=== PATIENT | male | born 1995 | race Caucasian/White ===

== ENCOUNTER 2017-02-03 09:44 | Day surgery (SDC) | payer BC ==
--- NOTE | 2017-02-03 07:52 | HP ---
DATE OF SURGERY: 02/03/2017 HISTORY OF PRESENT ILLNESS: The patient is a 21 year-old who for the past year has had a bulge, occasional aches and pains. I thought he had some incarcerated preperitoneal fat. PAST MEDICAL HISTORY: He denies any chronic illnesses. MEDICATIONS: None. ALLERGIES: NKDA. PAST SURGICAL HISTORY: None. FAMILY HISTORY: Negative. SOCIAL HISTORY: No smoking. He does drink alcohol occasionally denies abuse. REVIEW OF SYSTEMS: Twelve systems reviewed per admission assessment. No chest pain or palpitations other systems negative or noncontributory as above and per preadmission questionnaire. PHYSICAL EXAMINATION: GENERAL: No acute distress. HEENT: Sclerae nonicteric. NECK: No JVD. CHEST: Equal excursion, nonlabored breathing. CVS: Regular rate and rhythm. ABDOMEN: Soft. Incarcerated hernia mid abdomen likely with some preperitoneal fat or omentum. No peritoneal signs. EXTREMITIES: No significant edema. NEURO: Alert, oriented, moving extremities symmetrically. No gross motor deficits noted. IMPRESSION: Incarcerated ventral hernia. I felt he would benefit from repair likely with mesh. Risks and benefits explained in detail including but not limited to bleeding or infection, small risk of bowel injury or perforation, adhesion or scar formation, risk of hematoma or seroma formation, risk of aches, pains, burning or numbness possibly residential or chronic in nature. Risk of mesh fracture or failure possibly creating an issue with the bowel possibly requiring other procedures, ongoing morbidity. Overall risk of hernia recurrence. Risk if the mesh became infected likely would need to be removed, risk of ingrown hair or suture reaction usually heals on its own. Risk of hematoma, seroma formation, swelling, or firmness of the incision. He understands and agrees to the planned procedure and will proceed with repair of incarcerated ventral umbilical area hernia with mesh as an outpatient.
[~2017-02-03 09:44] MED LIST: BRIDION 200MG/2ML IV ONE; DIPRIVAN 200 MG/20 ML IV ONE; Decadron 4 MG INJ IV ONE; SUBLIMAZE 100 MCG/2 ML IV ONE; TORAdol 30 mg Injection IV ONE; Zemuron 100 MG/10 ML IV ONE; Zofran 4 MG/2 ML VIAL IV ONE
[2017-02-03] MEDS ORDERED: CEFAZOLIN 2 GM-D5W BAG** 50 ML IV ONE (09:51)
[2017-02-03] MEDS ORDERED: Lactated Ringers 1,000 ML IV SCH (10:00)
[2017-02-03] MEDS ORDERED: Versed 2 MG/2 ML Injection IV ONE (10:24)
[2017-02-03] MEDS ORDERED: Lactated Ringers 1,000 ML IV ONE (10:59)
[2017-02-03] MEDS ORDERED: Sensorcaine 0.25% 10 ML ONE (10:59)
[2017-02-03] MEDS ORDERED: BACIGUENT 30 GM ONE (11:36)
[2017-02-03] MEDS ORDERED: DILAUDID 2 MG INJECTION ONE (12:04)
[2017-02-03] MEDS ORDERED: NORCO 5/325 MG PO PRN ×2 (13:02→13:13)
[2017-02-03] MEDS ORDERED: NORCO 5/325 MG ONE (13:06)
[2017-02-03 13:26] VITALS: O2SAT 98
[2017-02-03 14:08] VITALS: BP 128/70; PULSE 57
--- NOTE | 2017-02-04 09:49 | OP ---
SURGERY DATE/TIME: 02/03/2017 1106 PREOPERATIVE DIAGNOSIS: Incarcerated umbilical area hernia. POSTOPERATIVE DIAGNOSIS: Incarcerated umbilical hernia. PROCEDURE: Repair of incarcerated umbilical hernia with mesh. MEDICAL OFFICE PROFESSIONAL INSTRUCTOR: Jett Sanchez, Medical Student III. SURGEON: Dr. Leo Madrigal. ANESTHESIA: General. ESTIMATED BLOOD LOSS: Minimal. INDICATIONS: As noted above. Risks and benefits explained in detail and not limited to and consent was obtained. The patient was having some mid abdominal aches and pains. It was felt he had incarcerated umbilical area hernia. I felt he would benefit from repair. Risks and benefits explained in detail but not limited to, including the possibility it may not improve his aches and pains as well as overall risk of hernia recurrence as well as risk as listed per the surgical consult note that was discussed in detail in the office but not limited. Consent was obtained. DESCRIPTION OF PROCEDURE AND FINDINGS: The site was confirmed with the patient in the holding area. The patient is taken to the operating room. General anesthesia was induced. The abdomen is prepped and draped in usual sterile fashion. After official time out and no disagreement with planned procedure a transverse incision made. Dissection carried down through the level of the fascia. He had a fair amount of subcutaneous adipose tissue but slowly and carefully umbilical tissue was freed from the underlying fascia revealing the incarcerated preperitoneal fat as well as the hernia. There did not appear to be any other obvious hernias around this area at this time. It was felt he would benefit from repair with a small piece of mesh. A 1x4 piece of mesh is cut to appropriate dimensions. Once the incarcerated fat had been reduced back down in the abdomen the fascia clear circumferentially. The mesh is placed carefully stay sutures with four quadrants were carefully placed. The mesh was able to be tacked in the retrofascial position in a tension-free manner with 0 Prolene in four quadrants. Good hemostasis noted. The patient's attenuated tissue was then closed over the top of the mesh with 0 PDS isolating the mesh from the rest of the subcu. The wound was irrigated out. Umbilical tissue had been tacked back down to the level of fascia with interrupted 3-0 Vicryl, subcu closed with 3-0 Vicryl, skin closed with 4-0 Vicryl. Steri-Strips and sterile dressing applied as well as a light little pressure dressing in the naval area itself. The patient tolerated the procedure well. There were no immediate complications. Findings discussed with the family out in the waiting area. He was transferred to the recovery room in stable condition.
== END 2017-02-03 13:50 | disposition home or self-care (01) ==
LOC: SDC 09:44
PROVIDERS: ATTEND Surgery
PROC: 0WUF0JZ Supplement Abdominal Wall with Synthetic Substitute, Open Approach (ICD-10-PCS; principal; 2017-02-03)
DX: K42.0 Umbilical hernia with obstruction, without gangrene (principal)
CPT/HCPCS: 00840; C1781; J0690; J1100; J1170; J1885; J2250; J2405; J2704; J3010; L0625; A9270-GY

== ENCOUNTER 2022-10-01 22:33 | Emergency (ER) | payer BC ==
--- NOTE | 2022-10-01 23:03 | ERPHSYRPT ---
- History of Present Illness Time Seen by Provider: 10/01/22 22:50 Source: patient Exam Limitations: no limitations Patient Subjective Stated Complaint: pt states she has had a headache for 2 days. staes [facility] and [facility] her nertech and it did not help much, pt states headache now is just as bad as before she went to [facility] Triage Nursing Assessment: pt alert and oriented, laying in bed face flushed pt is crying states head hurts behind right eye, pain is 8/10 Physician History: This is a 35-year-old white female who has a history of headaches but never been told she has had migraine headaches but presents with a significant headache that has been present for at least 3 days. [facility] and she received a dose of Nurtec which did not help her. Patient, in the past, has been on Norvasc for high blood pressure but her blood pressure has been fine so she has stopped that medication. At [facility] today, she stated that her systolic blood pressure was 110 to 117. On arrival to the emergency department she states that she is feeling anxious and has persistent pain in her systolic blood pressure here is in the low 170s. Patient has not had any recent head trauma. She has never seen a neurologist. In the last 3 to 4 weeks she is having more frequent headaches. Timing/Duration: day(s) (3) Quality: aching Head Pain Location: frontal Severity of Pain-Max: moderate Severity of Pain-Current: moderate Recent Head Trauma: no recent headache/trauma, occasional headaches Modifying Factors: Improves With: exposure to light, noise Associated Symptoms: nausea/vomiting (Nausea but no vomiting), sensitive to light (Mild), No confusion, No dizziness, No loss of consciousness, No neck pain, No speech problems, No stiff neck, No vision changes, No visual distu rbance Previous symptoms: same symptoms as today, recently seen, recently treated (With Nurtec as an outpatient) Allergies/Adverse Reactions: No Known Drug Allergies Allergy (Unverified 10/01/22 22:49) Home Medications: Fluoxetine HCl 20 mg [Prozac 20 MG] 60 mg PO DAILY MDD 60 10/01/22 [History] Immunizations Up to Date: No Travel Risk - International Travel Have you traveled outside of the country in past 3 weeks: No - Coronavirus Screening Are you exhibiting any of the following symptoms?: No Close contact with a COVID-19 positive Pt in past 14-21 Days: No - Vaccine Status Have you recieved a Covid-19 vaccination: Yes Bulk Mail Clerk: Moderna - Vaccination Dates Date of 2cond Vaccination (if applicable): unknown - Review of Systems Constitutional: No Symptoms Eyes: No Symptoms Ears, Nose, & Throat: No Symptoms Respiratory: No Symptoms Cardiac: No Symptoms Abdominal/Gastrointestinal: Nausea Genitourinary Symptoms: No Symptoms Musculoskeletal: No Symptoms Skin: No Symptoms Neurological: Headache Psychological: No Symptoms Endocrine: No Symptoms Hematologic/Lymphatic: No Symptoms Immunological/Allergic: No Symptoms All Other Systems: Reviewed and Negative - Past Medical History Pertinent Past Medical History: Yes Other Medical History: gestational diabetes, depression, anxiety - Past Surgical History Past Surgical History: Yes Other Surgical History: c section-1 - Social History Smoking Status: Never smoker Exposure to second hand smoke: No Drug Use: none - Female History Hx Last Menstrual Period: merena Hx Now: No - Nursing Vital Signs Nursing Vital Signs: Initial Vital Signs Temperature 98.8 F 10/01/22 22:38 Pulse Rate 83 10/01/22 22:38 Respiratory Rate 18 10/01/22 22:38 Blood Pressure 176/111 10/01/22 22:38 O2 Sat by Pulse Oximetry 98 10/01/22 22:38 Pain Scale Pain Intensity 8 - Physical Exam General Appearance: mild distress, alert, anxiety, obese Eye Exam: PERRL/EOMI, eyes nml inspection Ears, Nose, Throat Exam: normal ENT inspection, moist mucous membranes Neck Exam: normal inspection, non-tender, supple, full range of motion Respiratory Exam: normal breath sounds, lungs clear, airway intact, No chest tenderness, No respiratory distress Cardiovascular Exam: regular rate/rhythm, normal heart sounds, normal peripheral pulses Gastrointestinal/Abdominal Exam: No tenderness Back Exam: normal inspection, normal range of motion, No CVA tenderness, No vertebral tenderness Extremity Exam: normal inspection, normal range of motion, pelvis stable Mental Status Exam: alert, oriented x 3, cooperative court operations clerk Exam: normal hearing, normal speech, PERRL, tongue midline Coordination/Gait Exam: normal finger to nose, normal gait Motor/Sensory Exam: no motor deficit, no sensory deficit Skin Exam: normal color, warm, dry Lymphatic Exam: No adenopathy SpO2 Interpretation: normal SpO2: 98 O2 Delivery: Room Air - Course Nursing assessment & vital signs reviewed: Yes Ordered Tests: Medication Summary Discontinued Medications Generic Name Dose Route Start Last Admin Trade Name Ana PRN Reason Stop Dose Admin Hydromorphone HCl 1 mg 10/01/22 23:11 Hydromorphone 1 Mg/1ml Inj 1 Mg/Ml Syringe IM 10/01/22 23:12 STAT ONE Ketorolac Tromethamine 60 mg 10/01/22 23:11 Ketorolac Tromethamine 30 Mg/Ml Inj IM 10/01/22 23:12 STAT ONE Prochlorperazine Edisylate 10 mg 10/01/22 23:11 Prochlorperazine Edisylate 10 Mg/2 Ml Vial IM 10/01/22 23:12 STAT ONE - Progress Progress: improved Air Movement: good Progress Note: 10/01/22 23:19 Medical decision making: I do not feel that is necessary for this patient to have a CT scan of the head without contrast performed. She has had headaches in the past and this is similar than the headaches that she has had the past. The only difference is that this been more persistent and she is having more recurrence of these headaches. She did not suffer any head trauma. She has no neck pain and no fevers. She has no clinical evidence of a CVA. Counseled pt/family regarding: diagnosis, need for follow-up - Departure Departure Disposition: Home Clinical Impression: Migraine headache Condition: Stable Critical Care Time: No Referrals: JOHNATHON SINHA MD [Primary Care Provider] - Follow up/PCP as directed Additional Instructions: Call Dr. Sinha's office tomorrow morning to make arrangements for follow-up appointment and obtain further recommendations.
[2022-10-01] MEDS ORDERED: Hydromorphone 1 mg/ml Injection IM ONE (23:11)
[2022-10-01] MEDS ORDERED: TORAdol 30 mg Injection IM ONE (23:11)
[2022-10-01] MEDS ORDERED: Compazine 10 MG/2 ML IM ONE (23:11)
[2022-10-01] MEDS ORDERED: Hydromorphone 1 mg/ml Injection ONE (23:16)
[2022-10-01] MEDS ORDERED: TORAdol 30 mg Injection ONE (23:16)
[2022-10-01] MEDS ORDERED: Compazine 10 MG/2 ML ONE (23:17)
[2022-10-02 00:25] VITALS: BP 146/106; PULSE 92; O2SAT 97
== END 2022-10-02 00:27 | disposition home or self-care (01) ==
LOC: ED 22:33
DX: G43.909 Migraine, unspecified, not intractable, without status migrainosus (principal); R11.0 Nausea; Z79.899 Other long term (current) drug therapy
CPT/HCPCS: 96372; 99283; J1170; J1885